=== PATIENT | male | born 1995 | race Caucasian/White ===

== ENCOUNTER 2024-02-20 21:06 | Emergency (ER) | payer SELFPAY ==
[~2024-02-20] VITALS: Ht 175.3 cm; Wt 92.5 kg
[2024-02-20 21:16] VITALS: BP 131/79; RESP 20; TEMP 97.8; O2SAT 100
[2024-02-20 21:20] VITALS: BP 131/79; RESP 20; TEMP 97.8
[2024-02-20 21:25] VITALS: O2SAT 98
[2024-02-20 21:35] VITALS: O2SAT 100
[2024-02-20] MEDS ORDERED: LIDOCAINE/EPI 1% 1:100000 20 ML VIAL INJ ONE (21:42)
[2024-02-20] MEDS ORDERED: WATER STERILE 10 ML MC ONE (22:04)
[2024-02-20] MEDS: ceFAZolin 1,000 MG VIAL IM ONE (22:10)
[2024-02-20] MEDS: LIDOCAINE MPF 1% 10 MG/ML VIAL INJ ONE (22:11)
[2024-02-20] MEDS: BACITRACIN OINT 500 UNITS/GM PKT TP ONE (23:22)
[2024-02-20] MEDS ORDERED: BACI-418 TP (23:30)
[2024-02-20] MEDS ORDERED: CEPH-588 PO (23:30)
== END 2024-02-20 23:52 | disposition home or self-care (01) ==
LOC: MED 21:06
DX: S61.412A Laceration without foreign body of left hand, initial encounter (principal); J45.909 Unspecified asthma, uncomplicated; I10 Essential (primary) hypertension; Z79.2 Long term (current) use of antibiotics; Z79.899 Other long term (current) drug therapy; W29.3XXA Contact with powered garden and outdoor hand tools and machinery, initial encounter; Y93.89 Activity, other specified; Y92.89 Other specified places as the place of occurrence of the external cause; Y99.8 Other external cause status
CPT/HCPCS: 12002; 73130; 96372; 99283; J0690; J2001; Q0092